=== PATIENT | male | born 1990 | race Caucasian/White ===

== ENCOUNTER 2017-08-16 18:05 | Emergency (ER) | payer BC, MEDICAID ==
[~2017-08-16] VITALS: Ht 172.7 cm; Wt 77.0 kg
[2017-08-16 18:14] VITALS: BP 126/44
== END 2017-08-16 21:00 | disposition left against medical advice (07) ==
LOC: ER 20:38
DX: R07.81 Pleurodynia (principal); Z53.21 Procedure and treatment not carried out due to patient leaving prior to being seen by health care provider